=== PATIENT | female | born 1965 | race Two or more races ===

== ENCOUNTER 2020-02-16 12:31 | Emergency (ER) | payer OTHER ==
[~2020-02-16] VITALS: Ht 162.6 cm; Wt 103.4 kg
[~2020-02-16 12:31] MED LIST: PROAIR HFA8.5 GM; TUSNEL LIQUID178 ML PO; VENTOLIN HFA18 GM IH
[2020-02-16] MEDS ORDERED: CIPRO500 MG/5 M (12:44)
[2020-02-16] MEDS ORDERED: LEVOTHYROXINE25 MC1 (12:44)
[2020-02-16] MEDS ORDERED: TAMS0.4C (12:44)
[2020-02-16] MEDS ORDERED: KETO10TA2 PO (16:43)
[2020-02-16] MEDS ORDERED: ORPHENADRINE C100 MG PO (16:43)
== END 2020-02-16 16:49 | disposition home or self-care (01) ==
LOC: ER 12:31
DX: R10.11 Right upper quadrant pain (principal); M54.5 Low back pain; Z03.818 Encounter for observation for suspected exposure to other biological agents ruled out